=== PATIENT | male | born 1985 | race Two or more races ===

== ENCOUNTER 2021-09-29 08:43 | Emergency (ER) | payer MEDICARE, OTHER ==
[2021-09-29 08:52] VITALS: BP 129/80; PULSE 61; RESP 18; TEMP 98.1
--- NOTE | 2021-09-29 09:23 | ED ---
General Adult HPI - General Chief complaint: Skin/Abscess/Foreign Body Stated complaint: Rash on thigh Time Seen by Provider: 09/29/21 08:58 Source: patient Mode of arrival: ambulatory Limitations: no limitations - History of Present Illness Initial comments: 36-year-old male with rash that he noticed today on his inner thighs and left hand. He states he was exposed to a new carpet when she was laying on. He denies fever. Denies difficulty breathing. No vomiting. No other associated symptoms. Reaction is itchy - Related Data Previous Rx's Medication Instructions Recorded Hydrocortisone Cream 1 applic TOPICAL TID #28 gm 09/29/21 [Hydrocortisone 2.5% Cream] diphenhydrAMINE [Benadryl] 25 mg PO TID PRN #21 capsule 09/29/21 Allergies Allergy/AdvReac Type Severity Reaction Status Date / Time No Known Allergies Allergy Verified 09/29/21 08:52 Review of Systems ROS Statement: Those systems with pertinent positive or pertinent negative responses have been documented in the HPI. ROS Other: All systems not noted in ROS Statement are negative. Past Medical History Past Medical History: No Reported History History of Any Multi-Drug Resistant Organisms: None Reported Additional Past Surgical History / Comment(s): cyst on rectum, cyst to left ear Past Psychological History: Anxiety Smoking Status: Never smoker Past Alcohol Use History: None Reported Past Drug Use History: None Reported General Exam Limitations: no limitations General appearance: alert, in no apparent distress Head exam: Present: atraumatic, normocephalic Eye exam: Present: normal appearance, PERRL ENT exam: Present: normal exam Neck exam: Present: normal inspection. Absent: tenderness, meningismus Respiratory exam: Present: normal lung sounds bilaterally. Absent: respiratory distress, wheezes Cardiovascular Exam: Present: regular rate, normal rhythm GI/Abdominal exam: Present: soft. Absent: distended, tenderness Extremities exam: Present: normal capillary refill Psychiatric exam: Present: normal affect, normal mood Skin exam: Present: warm, dry, intact, erythema ( erythematous rash to bilateral inner thighs) Course Vital Signs 09/29/21 08:48 Temperature 98.1 F Pulse Rate 61 Respiratory 18 Rate Blood Pressure 129/80 O2 Sat by Pulse 100 Oximetry Medical Decision Making - Medical Decision Making 36-year-old male with rash to bilateral inner thighs, very fine erythematous rash. Likely contact dermatitis to carpet. No alarming features on history or physical exam. Started on Benadryl and topical steroid. Disposition Clinical Impression: Contact dermatitis Disposition: HOME SELF-CARE Condition: Good Instructions (If sedation given, give patient instructions): Contact Dermatitis (ED) Prescriptions: diphenhydrAMINE [Benadryl] 25 mg PO TID PRN #21 capsule PRN Reason: Rash Hydrocortisone Cream [Hydrocortisone 2.5% Cream] 1 applic TOPICAL TID #28 gm Is patient prescribed a controlled substance at d/c from ED?: No Referrals: Chaitanya Butts MD [Primary Care Provider] - 1-2 days Time of Disposition: 09:17
== END 2021-09-29 09:31 | disposition home or self-care (01) ==
LOC: EC 08:43
DX: L25.8 Unspecified contact dermatitis due to other agents (principal); F41.9 Anxiety disorder, unspecified
CPT/HCPCS: 99282

== ENCOUNTER 2022-03-25 17:25 | Emergency (ER) | payer MEDICARE, OTHER ==
--- NOTE | 2022-03-25 18:23 | ED ---
General Adult HPI - General Chief complaint: Psychiatric Symptoms Stated complaint: Weakness Time Seen by Provider: 03/25/22 17:55 Source: patient Mode of arrival: ambulatory - History of Present Illness Initial comments: Dictation was produced using [employer] dictation software. please excuse any grammatical, word or spelling errors. Chief Complaint: 37-year-old male presents emergency Department with depression and anxiety History of Present Illness: A 7-year-old male presents emergency by for depression and anxiety has past medical history of autism. States she is upset because his brother took something from him. He is not suicidal or homicidal. Has no medical complaints. No paranoia. The ROS documented in this emergency department record has been reviewed and confirmed by me. Those systems with pertinent positive or negative responses have been documented in the HPI. All other systems are other negative and/or noncontributory. PHYSICAL EXAM: General Impression: Alert and oriented x3, not in acute distress HEENT: Normocephalic atraumatic, extra-ocular movements intact, pupils equal and reactive to light bilaterally, mucous membranes moist. Cardiovascular: Heart regular rate and rhythm Chest: Able to complete full sentences, no retractions, no tachypnea Musculoskeletal: Pulses present and equal in all extremities, no peripheral edema Motor: no focal deficits noted Neurological: CN II-XII grossly intact, no focal motor or sensory deficits noted Skin: Intact with no visualized rashes Psych: Normal affect and mood ED course: 37-year-old with testicular male presents emergency department for chief complaint of depression and anxiety. Vital signs upon arrival are within acceptable limits. Cleared for EPS evaluation. Nursing notes and chart review was performed Patient was evaluated by EPS recommended discharge. - Related Data Previous Rx's Medication Instructions Recorded Hydrocortisone Cream 1 applic TOPICAL TID #28 gm 09/29/21 [Hydrocortisone 2.5% Cream] diphenhydrAMINE [Benadryl] 25 mg PO TID PRN #21 capsule 09/29/21 Allergies Allergy/AdvReac Type Severity Reaction Status Date / Time No Known Allergies Allergy Verified 03/25/22 17:43 Review of Systems ROS Statement: Those systems with pertinent positive or pertinent negative responses have been documented in the HPI. ROS Other: All systems not noted in ROS Statement are negative. Past Medical History Past Medical History: No Reported History Additional Past Medical History / Comment(s): autisim History of Any Multi-Drug Resistant Organisms: None Reported Additional Past Surgical History / Comment(s): cyst on rectum, cyst to left ear Past Psychological History: Anxiety Smoking Status: Never smoker Past Alcohol Use History: Occasional Past Drug Use History: None Reported Course Vital Signs 03/25/22 17:34 Temperature 98 F Pulse Rate 77 Respiratory 15 Rate Blood Pressure 146/85 O2 Sat by Pulse 99 Oximetry Medical Decision Making - Lab Data Lab Results 03/25/22 Range/Units 18:01 Influenza Type A (PCR) Not Detected (Not Detectd) Influenza Type B (PCR) Not Detected (Not Detectd) RSV (PCR) Not Detected (Not Detectd) SARS-CoV-2 (PCR) Not Detected (Not Detectd) Disposition Clinical Impression: Acute anxiety, Depression Disposition: HOME SELF-CARE Condition: Good Instructions (If sedation given, give patient instructions): Depression (ED) Is patient prescribed a controlled substance at d/c from ED?: No Referrals: Chaitanya Butts MD [Primary Care Provider] - 1-2 days Time of Disposition: 19:12
[2022-03-25 19:22] VITALS: BP 122/84; PULSE 76; RESP 16; TEMP 98.2
== END 2022-03-25 19:21 | disposition home or self-care (01) ==
LOC: EC 17:25
DX: F41.9 Anxiety disorder, unspecified (principal); F32.A Depression, unspecified; Z20.822 Contact with and (suspected) exposure to COVID-19
CPT/HCPCS: 82075; 87636; 99285

== ENCOUNTER 2022-06-11 10:14 | Day surgery (SDC) | payer MEDICARE, OTHER ==
[2022-06-07 16:22] VITALS: BMI 25.0
[~2022-06-11 10:14] MED LIST: LACTATED RINGERS 1,000 ML IV SCH; LIDOCAINE 1% (10MG/ML) FOR IV START INTRADERMA PRN
[2022-06-11 10:46] VITALS: RESP 16; TEMP 98.1
[2022-06-11] MEDS ORDERED: PROPOFOL 10 MG/ML 20 ML VIAL IV ONE (10:59)
--- NOTE | 2022-06-11 11:16 | P.PCN ---
Date of Procedure: 06/11/22 Procedure(s) Performed: BRIEF HISTORY: Patient is a 37-year-old pleasant -Portuguese male scheduled for an elective colonoscopy as a part of evaluation of prior history of colon polyps. PROCEDURE PERFORMED: Colonoscopy. PREOPERATIVE DIAGNOSIS: History of colon polyps. IV sedation per Anesthesia. PROCEDURE: After informed consent was obtained, the patient, was brought into the endoscopy unit. IV sedation was administered by Anesthesia under continuous monitoring. Digital rectal examination was normal. Initially the Olympus CF-160 flexible video colonoscope was then inserted in the rectum, gradually advanced into the cecum without any difficulty. Careful examination was performed as the scope was gradually being withdrawn. Ileocecal valve and the appendiceal orifice were visualized and appeared normal. Terminal ileum was intubated and 20 cm visualized and appeared normal. Prep was fair.. Mucosa of the cecum, ascending colon, transverse colon, descending colon, sigmoid colon, and rectum appeared normal. Retroflexion was performed in the rectum and no lesions were seen. The patient tolerated the procedure well. IMPRESSION: Normal-appearing colon from rectum to cecum with no evidence of colorectal neoplasia. RECOMMENDATIONS: Findings of this examination were discussed with the patient as well as his family. He was advised to have a repeat screening colonoscopy in 10 years.
[2022-06-11 11:38] VITALS: BP 107/67; PULSE 69
== END 2022-06-11 12:06 | disposition home or self-care (01) ==
LOC: ORWHC2ENDO 10:14
PROVIDERS: ATTEND Internal Medicine Gastroenterology
DX: Z12.11 Encounter for screening for malignant neoplasm of colon (principal); Z86.010 Personal history of colon polyps; F32.A Depression, unspecified; F84.0 Autistic disorder; Z79.899 Other long term (current) drug therapy
CPT/HCPCS: 86900; 86901; J2704; G0121; 45378

== ENCOUNTER 2022-08-28 18:37 | Emergency (ER) | payer MEDICARE, OTHER ==
[2022-08-28 18:47] VITALS: BP 142/83; TEMP 99.2
--- NOTE | 2022-08-28 20:54 | US ---
EXAMINATION TYPE: US extremity nonvasc mass LT DATE OF EXAM: 08/28/2022 COMPARISON: NONE CLINICAL INDICATION: Male, 37 years old with history of lump on left shoulder below AC joint; Patient states feeling a lump at anterior left shoulder after carrying groceries. Lump is soft at touch. TECHNIQUE: FINDINGS: Multiple pictures taken at patients area of concern with no prominent masses or fluid viri ection identified. Contralateral images taken. No suspicious cystic or solid areas and soft tissues. IMPRESSION: 1. No acute ultrasound abnormality patient's area of concern.
--- NOTE | 2022-08-28 21:10 | ED ---
Extremity Problem HPI - General Chief complaint: Extremity Problem,Nontraumatic Stated complaint: Lump on Lt shoulder Time Seen by Provider: 08/28/22 19:57 Source: patient Mode of arrival: ambulatory Limitations: no limitations - History of Present Illness Initial comments: Patient is a 37-year-old male presents emergency department for a lump on left shoulder. He noticed a couple weeks ago. States it is the same size, no growth. It is not painful or itchy. Denies fever, chills, nausea, vomiting. - Related Data Home Medications Medication Instructions Recorded Confirmed Emtricitabine/Tenofovir (Tdf) 1 tab PO DAILY 06/07/22 06/11/22 [Truvada 200 mg-300 mg Tablet] busPIRone HCL 10 mg PO BID PRN 06/07/22 06/11/22 risperiDONE 0.5 mg PO BID 06/07/22 06/11/22 Allergies Allergy/AdvReac Type Severity Reaction Status Date / Time No Known Allergies Allergy Verified 08/28/22 18:47 Review of Systems ROS Statement: Those systems with pertinent positive or pertinent negative responses have been documented in the HPI. ROS Other: All systems not noted in ROS Statement are negative. Past Medical History Past Medical History: No Reported History Additional Past Medical History / Comment(s): autisim History of Any Multi-Drug Resistant Organisms: None Reported Additional Past Surgical History / Comment(s): removal of cyst on rectum, cyst left ear Past Anesthesia/Blood Transfusion Reactions: No Reported Reaction Past Psychological History: Anxiety, Depression Smoking Status: Never smoker Past Alcohol Use History: Occasional Past Drug Use History: None Reported General Exam Limitations: no limitations General appearance: alert, in no apparent distress Head exam: Present: atraumatic, normocephalic, normal inspection Respiratory exam: Present: normal lung sounds bilaterally. Absent: respiratory distress, wheezes, rales, rhonchi, stridor Cardiovascular Exam: Present: regular rate, normal rhythm, normal heart sounds. Absent: systolic murmur, diastolic murmur, rubs, gallop, clicks Psychiatric exam: Present: normal affect, normal mood Skin exam: Present: warm, dry, intact, normal color, other (soft, non fluctuant 2 cm lump over anterior left shoulder beneath AC joint. Nontender. No surrounding erythema swelling or blanching). Absent: rash Course Vital Signs 08/28/22 08/28/22 18:44 21:46 Temperature 99.2 F Pulse Rate 75 71 Respiratory 20 18 Rate Blood Pressure 142/83 O2 Sat by Pulse 100 98 Oximetry Medical Decision Making - Medical Decision Making Was pt. sent in by a medical professional or institution (VIVIAN Castañeda, GLOST KILN OPERATOR, urgent care, hospital, or detention...) When possible be specific @ -No Did you speak to anyone other than the patient for history (EMS, parent, family, police, friend...)? What history was obtained from this source @ -No Did you review nursing and triage notes (agree or disagree)? Why? @ -I reviewed and agree with nursing and triage notes Were old charts reviewed (outside hosp., previous admission, EMS record, old EKG, old radiological studies, urgent care reports/EKG's, detention records)? Report findings @ -No old charts were reviewed Differential Diagnosis (chest pain, altered mental status, abdominal pain women, abdominal pain men, vaginal bleeding, weakness, fever, dyspnea, syncope, headache, dizziness, GI bleed, back pain, seizure, CVA, palpatations, mental health)? @ -lipoma, abscess, lymphadenopathy. This list is not meant to be all- inclusive EKG interpreted by me (3pts min.). @ None X-rays interpreted by me (1pt min.). @ -None done CT interpreted by me (1pt min.). @ -None done U/S interpreted by me (1pt. min.). @ -No suspicious cystic or solid areas What testing was considered but not performed or refused? (CT, X-rays, U/S, labs)? Why? @ -None What meds were considered but not given or refused? Why? @ -None Did you discuss the management of the patient with other professionals (professionals i.e. VIVIAN Castañeda, GLOST KILN OPERATOR, lab, RT, psych nurse, social services counselor, hull and deck remover, teacher, correctional program officer, content creation manager)? Give summary @ -No Was smoking cessation discussed for >3mins.? @ -No Was critical care preformed (if so, how long)? @ -No Were there social determinants of health that impacted care today? How? (Homelessness, low income, unemployed, alcoholism, drug addiction, transportation, low edu. Level, literacy, decrease access to med. care, senior care, rehab)? @ -No Was there de-escalation of care discussed even if they declined (Discuss DNR or withdrawal of care, Hospice)? DNR status @ -No What co-morbidities impacted this encounter? (DM, HTN, Smoking, COPD, CAD, Cancer, CVA, ARF, Chemo, Hep., AIDS, mental health diagnosis, sleep apnea, morbid obesity)? @ -None Was patient admitted / discharged? Hospital course, mention meds given and route, prescriptions, significant lab abnormalities, going to OR and other pertinent info. @ -Discharged. Patient soft, non fluctuant 2 cm lump over anterior left shoulder beneath AC joint. Nontender. No surrounding erythema swelling or blanching. US report shows no suspicious cystic or solid areas. Patient to follow up with primary care provider Undiagnosed new problem with uncertain prognosis? @ -No Drug Therapy requiring intensive monitoring for toxicity (Heparin, Nitro, Insulin, Cardizem)? @ -No Were any procedures done? @ -No Diagnosis/symptom? @Lump of skin Acute, or Chronic, or Acute on Chronic? @ -acute Uncomplicated (without systemic symptoms) or Complicated (systemic symptoms)? @ -uncomplicated Side effects of treatment? @ -No Exacerbation, Progression, or Severe Exacerbation? @ -No Poses a threat to life or bodily function? How? (Chest pain, [place], [place], pneumonia, PE, COPD, DKA, ARF, appy, cholecystitis, CVA, Diverticulitis, Homicidal, Suicidal, threat to staff... and all critical care pts) @ -No Dr. Reza is my attending Disposition Clinical Impression: Lump of skin Disposition: HOME SELF-CARE Condition: Good Instructions (If sedation given, give patient instructions): Lipoma (ED) Additional Instructions: Please follow-up with your primary care provider in 1-2 days. Return to the emergency department if you experience new, concerning, or worsening symptoms. Is patient prescribed a controlled substance at d/c from ED?: No Referrals: Chaitanya Butts MD [Primary Care Provider] - 1-2 days
[2022-08-28 21:47] VITALS: PULSE 71; RESP 18
== END 2022-08-28 21:47 | disposition home or self-care (01) ==
LOC: EC 18:37
DX: R22.31 Localized swelling, mass and lump, right upper limb (principal); F41.9 Anxiety disorder, unspecified; F32.A Depression, unspecified; Z79.899 Other long term (current) drug therapy
CPT/HCPCS: 99283

== ENCOUNTER 2023-02-12 20:44 | Emergency (ER) | payer MEDICARE, OTHER ==
[2023-02-12 21:17] VITALS: RESP 16; TEMP 98.4
[2023-02-12] MEDS ORDERED: DOXYCYCLINE 100 MG CAP PO STA (21:41)
[2023-02-12] MEDS ORDERED: cefTRIAXone 250 MG VIAL IM STA (21:47)
--- NOTE | 2023-02-12 21:47 | ED ---
Male Urogenital HPI - General Chief complaint: Urogenital Stated complaint: STI testing Time Seen by Provider: 02/12/23 21:00 Source: patient Mode of arrival: ambulatory Limitations: no limitations - History of Present Illness Initial comments: 38-year-old male presents emergency department requesting STI testing. States that he doesn't have any symptoms however his sexual partner did test positive for gonorrhea. He denies any penile discharge. No rash. No testicular pain. No fevers. No other alleviating, precipitating or modifying factors - Related Data Home Medications Medication Instructions Recorded Confirmed Emtricitabine/Tenofovir (Tdf) 1 tab PO DAILY 06/07/22 06/11/22 [Truvada 200 mg-300 mg Tablet] busPIRone HCL 10 mg PO BID PRN 06/07/22 06/11/22 risperiDONE 0.5 mg PO BID 06/07/22 06/11/22 Previous Rx's Medication Instructions Recorded Doxycycline [Vibramycin] 100 mg PO BID #20 capsule 11/24/22 Doxycycline Hyclate 100 mg PO BID 7 Days #14 tab 02/12/23 Allergies Allergy/AdvReac Type Severity Reaction Status Date / Time No Known Allergies Allergy Verified 02/12/23 20:57 Review of Systems ROS Statement: Those systems with pertinent positive or pertinent negative responses have been documented in the HPI. ROS Other: All systems not noted in ROS Statement are negative. Past Medical History Past Medical History: No Reported History Additional Past Medical History / Comment(s): autisim History of Any Multi-Drug Resistant Organisms: None Reported Additional Past Surgical History / Comment(s): removal of cyst on rectum, cyst left ear Past Anesthesia/Blood Transfusion Reactions: No Reported Reaction Past Psychological History: Anxiety, Depression Smoking Status: Never smoker Past Alcohol Use History: Occasional Past Drug Use History: None Reported General Exam Limitations: no limitations General appearance: alert, in no apparent distress Head exam: Present: atraumatic, normocephalic, normal inspection Eye exam: Present: normal appearance, PERRL, EOMI. Absent: scleral icterus, conjunctival injection, periorbital swelling ENT exam: Present: normal exam, mucous membranes moist Neck exam: Present: normal inspection. Absent: tenderness, meningismus, lymphadenopathy Respiratory exam: Present: normal lung sounds bilaterally. Absent: respiratory distress, wheezes, rales, rhonchi, stridor Cardiovascular Exam: Present: regular rate, normal rhythm, normal heart sounds. Absent: systolic murmur, diastolic murmur, rubs, gallop, clicks GI/Abdominal exam: Present: soft, normal bowel sounds. Absent: distended, tenderness, guarding, rebound, rigid Extremities exam: Present: normal inspection, full ROM, normal capillary refill. Absent: tenderness, pedal edema, joint swelling, calf tenderness Back exam: Present: normal inspection Neurological exam: Present: alert, oriented X3, CN II-XII intact Psychiatric exam: Present: normal affect, normal mood Skin exam: Present: warm, dry, intact, normal color. Absent: rash Course Vital Signs 02/12/23 02/12/23 20:57 22:10 Temperature 98.4 F Pulse Rate 76 77 Respiratory 16 16 Rate Blood Pressure 145/82 131/85 O2 Sat by Pulse 99 96 Oximetry Medical Decision Making - Medical Decision Making Was pt. sent in by a medical professional or institution (, PA, BOWLING TEACHER, urgent care, hospital, or care home...) When possible be specific @ -No Did you speak to anyone other than the patient for history (EMS, parent, family, police, friend...)? What history was obtained from this source @ -No Did you review nursing and triage notes (agree or disagree)? Why? @ -I reviewed and agree with nursing and triage notes Were old charts reviewed (outside hosp., previous admission, EMS record, old EKG, old radiological studies, urgent care reports/EKG's, care home records)? Report findings @ -No old charts were reviewed Differential Diagnosis (chest pain, altered mental status, abdominal pain women, abdominal pain men, vaginal bleeding, weakness, fever, dyspnea, syncope, headache, dizziness, GI bleed, back pain, seizure, CVA, palpatations, mental health, musculoskeletal)? @ -Chlamydia, gonorrhea, herpes, HIV EKG interpreted by me (3pts min.). @ -not done X-rays interpreted by me (1pt min.). @ -None done CT interpreted by me (1pt min.). @ -None done U/S interpreted by me (1pt. min.). @ -None done What testing was considered but not performed or refused? (CT, X-rays, U/S, labs)? Why? @ -None What meds were considered but not given or refused? Why? @ -None Did you discuss the management of the patient with other professionals (professionals i.e. , PA, BOWLING TEACHER, lab, RT, psych nurse, social media project manager, validation engineer, teacher, health officer, correctional case manager)? Give summary @ -No Was smoking cessation discussed for >3mins.? @ -No Was critical care preformed (if so, how long)? @ -No Were there social determinants of health that impacted care today? How? (Homelessness, low income, unemployed, alcoholism, drug addiction, transp ortation, low edu. Level, literacy, decrease access to med. care, fdc, rehab)? @ -No Was there de-escalation of care discussed even if they declined (Discuss DNR or withdrawal of care, Hospice)? DNR status @ -No What co-morbidities impacted this encounter? (DM, HTN, Smoking, COPD, CAD, Cancer, CVA, ARF, Chemo, Hep., AIDS, mental health diagnosis, sleep apnea, morbid obesity)? @ -None Was patient admitted / discharged? Hospital course, mention meds given and route, prescriptions, significant lab abnormalities, going to OR and other pertinent info. @ -Upon arrival patient seen in room 28. History and physical exam is performed. He does provide a urine sample. Patient does want to be empirically treated. He is to follow up with health department for any further STI testing. Return for any new or worsening symptoms. Patient discharged in stable condit ion Undiagnosed new problem with uncertain prognosis? @ -No Drug Therapy requiring intensive monitoring for toxicity (Heparin, Nitro, Insulin, Cardizem)? @ -No Were any procedures done? @ -No Diagnosis/symptom? @ -STD exposure Acute, or Chronic, or Acute on Chronic? @ -Acute Uncomplicated (without systemic symptoms) or Complicated (systemic symptoms)? @ -Uncomplicated Side effects of treatment? @ -No Exacerbation, Progression, or Severe Exacerbation? @ -No Poses a threat to life or bodily function? How? (Chest pain, [place], [place], pneumonia, PE, COPD, DKA, ARF, appy, cholecystitis, CVA, Diverticulitis, Homicidal, Suicidal, threat to staff... and all critical care pts) @ -No - Lab Data Lab Results 02/12/23 Range/Units 21:41 Chlamydia DNA (PCR) Negative (Negative) N.gonorrhoeae DNA Probe Negative (Negative) Disposition Clinical Impression: STD exposure Disposition: HOME SELF-CARE Condition: Stable Instructions (If sedation given, give patient instructions): Safe Sex Practices (ED) Additional Instructions: Please take the antibiotics as directed. Follow up with your primary care doctor. We will call you with positive results. Prescriptions: Doxycycline Hyclate 100 mg PO BID 7 Days #14 tab Is patient prescribed a controlled substance at d/c from ED?: No Referrals: Chaitanya Butts MD [Primary Care Provider] - 1-2 days Time of Disposition: 21:46
[2023-02-12 22:29] VITALS: BP 131/85; PULSE 77
[2023-02-16 13:51] LABS: N. gonorrhoeae,PCR Negative (Negative)
[2023-02-16 14:16] LABS: C. trachomatis,PCR Negative (Negative)
== END 2023-02-12 22:11 | disposition home or self-care (01) ==
LOC: EC 20:44
DX: Z20.2 Contact with and (suspected) exposure to infections with a predominantly sexual mode of transmission (principal); F41.9 Anxiety disorder, unspecified; F32.A Depression, unspecified; Z79.899 Other long term (current) drug therapy
CPT/HCPCS: 87491; 87591; 99283; 96372; J0696

== ENCOUNTER → 2023-02-15 | Outpatient (CLI) | payer MEDICARE, OTHER ==
--- NOTE | 2023-02-18 13:30 | MR ---
EXAMINATION TYPE: MR knee LT wo con DATE OF EXAM: 02/15/2023 COMPARISON: HISTORY: Lt knee pain, over extended x 5 years ago TECHNIQUE: Multiplanar, multisequence imaging of the knee is performed without IV contrast. FINDINGS: The osseous structures are intact there is no bone contusion or fracture. There is mild abnormal signal intensity in the anterior cruciate ligament but intact fibers are clear ly identified. The findings are consistent with a mild strain. The medial and lateral collateral liga ments and posterior cruciate ligament are intact. There is no joint effusion. There is no degenerative change of patellofemoral compartment or medial or lateral compartment. On the coronal images there is abnormal signal in the body of the medial meniscus which is extends ob liquely to the inferior surface. It is not appreciated on the sagittal images but is suspicious for a medial meniscal tear. The lateral meniscus is intact. The quadriceps and patellar tendons are normal. There is no joint effusion. IMPRESSION: 1. Mild strain of the anterior cruciate ligament. 2. probable oblique tear of the body of the medial meniscus as described above.
== END | disposition home or self-care (01) ==
LOC: RADMRIMAIN 13:06
PROVIDERS: ATTEND Orthopaedic Surgery
DX: S83.512A Sprain of anterior cruciate ligament of left knee, initial encounter (principal)

== ENCOUNTER 2023-04-08 07:10 | Day surgery (SDC) | payer MEDICARE, OTHER ==
--- NOTE | 2023-04-07 08:57 | P.HPOR ---
History of Present Illness H&P Date: 04/07/23 Chief Complaint: Left knee pain Patient is a 8-year-old male who presents with progressive left knee pain for the past 6 years worsening over the past year. He notes it initially started after he hyperextended his knee working out. He has medial pain that increased with prolonged walking. He has intermittent buckling symptoms and night pain. He tried previous medications, injections, and therapy without much relief. He notes daily pain that limits him. 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 History of Any Multi-Drug Resistant Organisms: None Reported Additional Past Surgical History / Comment(s): removal of cyst on rectum, cyst left ear Past Anesthesia/Blood Transfusion Reactions: No Reported Reaction Past Psychological History: Anxiety, Depression Smoking Status: Never smoker Past Alcohol Use History: Occasional Past Drug Use History: None Reported Medications and Allergies Home Medications Medication Instructions Recorded Confirmed Type Emtricitabine/Tenofovir (Tdf) 1 tab PO QAM 06/07/22 04/07/23 History [Truvada 200 mg-300 mg Tablet] busPIRone HCL 10 mg PO BID PRN 06/07/22 04/07/23 History risperiDONE 0.5 mg PO BID 06/07/22 04/07/23 History traMADol HCL 50 mg PO BID PRN 04/07/23 04/07/23 History Allergies Allergy/AdvReac Type Severity Reaction Status Date / Time No Known Allergies Allergy Verified 04/07/23 08:40 Physical Examination - Knee left Appearance: effusion Effusion grade: trace Tenderness with palpation: medial Pain: throughout ROM ROM: extension: -5 degrees ROM: flexion: 140 degrees Crepitus with motion: Yes Strength: extension: 5/5 Strength: flexion: 5/5 Meniscal tests: medial meniscal tests: positive, medial joint line pain: posi tive Results He is a well-developed well-nourished male approximately 5 foot 6, 174 pounds of mesomorphic habitus. HEENT exam is nonfocal, neck is supple. He has painless passive motion of the left hip. Straight leg raise is negative. He is tender about the medial joint line of the left knee. Collaterals are stable, Claus was negative, Skyler's elicits medial pain. His distal neurovascular appears intact in the left lower extremity. - Diagnostic results Knee MRI: image reviewed (MRI of the left knee shows evidence of a posterior medial meniscal tear.) Assessment and Plan Assessment: Left knee internal derangement/symptomatic medial meniscal tear Plan: I talked to the patient length regarding his condition along with treatment options. This point is quite symptomatic having pain and mechanical symptoms despite previous conservative measures. After a thorough discussion he has to proceed with surgery. We'll plan proceed with left knee arthroscopy with probable partial medial meniscectomy. Risks and benefits were discussed at length in layman's terms. We will likely perform that as an outpatient procedure.
[2023-04-07 09:27] VITALS: BMI 26.9
[~2023-04-08 07:10] MED LIST changes: -LACTATED RINGERS 1,000 ML IV SCH; -LIDOCAINE 1% (10MG/ML) FOR IV START INTRADERMA PRN; +MIDAZOLAM 2 MG/2 ML VIAL IV PRN
[2023-04-08] MEDS: LACTATED RINGERS 1,000 ML IV SCH (07:50)
[2023-04-08] MEDS: DEXAMETHASONE SOD PHOSPHATE 4 MG/ML 1 ML VIAL IV ONE (07:58)
[2023-04-08] MEDS: ONDANSETRON 4 MG/2 ML VIAL IVP ONE (07:58)
[2023-04-08 08:29] VITALS: TEMP 97.5
[2023-04-08] MEDS ORDERED: fentaNYL (PF) 50 MCG/ML 2 ML AMP ONE (09:01)
[2023-04-08] MEDS ORDERED: PROPOFOL 10 MG/ML 20 ML VIAL IV ONE (09:01)
[2023-04-08] MEDS ORDERED: LIDOCAINE 1% INJ 10MG/ML (20 ML MDV) ONE (09:01)
[2023-04-08] MEDS ORDERED: PHENYLEPHRINE 10 MG/ML VIAL ONE (09:01)
[2023-04-08] MEDS ORDERED: MIDAZOLAM 2 MG/2 ML VIAL ONE (09:01)
[2023-04-08] MEDS ORDERED: KETOROLAC 15 MG/ML 1 ML VIAL ONE (09:01)
[2023-04-08] MEDS: EPINEPHrine (PF) 1 ML in SODIUM CHLORIDE 0.9% IRRIGATIO 3,000 ML IRRIGATION ONE (09:30)
--- NOTE | 2023-04-08 09:48 | P.OP ---
Date of Procedure: 04/08/23 Preoperative Diagnosis: Left knee internal derangement Postoperative Diagnosis: Left knee posterior medial meniscal tear/fat pad impingement Procedure(s) Performed: Left knee arthroscopic partial medial meniscectomy/fat pad resection Anesthesia: BRIDGETA Surgeon: Andrzej Paris Estimated Blood Loss (ml): 10 Pathology: none sent Condition: stable Disposition: PACU Indications for Procedure: The patient is a 38-year-old male who presents with persistent left knee pain and mechanical symptoms despite conservative measures. A discussion of the risks and benefits of operative intervention versus continued conservative measures was made with the patient. He opted to proceed with surgery. Operative risks to include infection, neurovascular injury, development of blood clots, possible incomplete resolution of symptoms, possible worsening symptoms and need for subsequent procedures was discussed. Informed consent was obtained. Operative Findings: As below Description of Procedure: The patient was brought to the operating room, and after induction of general anesthesia examined the left knee. Collaterals were stable, Claus was negative, and posterior drawer was negative. The left lower extremity was prepped and draped in a normal fashion. A superior lateral portal was made through a 3 mm skin incision superior and lateral to the patella. This was used for outflow. A lateral portal was made through a 5 mm vertical skin incision lateral to the patella tendon above the joint line. Diagnostic arthroscopy was performed. On inspection of the medial compartment, there was a longitudinal tear involving the posterior most aspect of the medial meniscus in the white- white junction. This was debrided back to stable base with straight baskets and a motorized shaver. Minimal chondromalacia was noted on the posterior lateral portion of the medial femoral condyle. On inspection of the notch, there appeared to be fat pad impingement. This was debrided with motorized shaver. The anterior cruciate ligament appeared to be intact. On inspection of the lateral compartment, no significant meniscal or cartilage pathology was noted. On inspection of the patellofemoral articulation , no significant cartilage pathology was noted. The gutters were clear debris. The knee was then thoroughly irrigated. The portals were closed with Steri-Strips. A sterile dressing was applied in addition to a compression stocking. The patient was awoken from general anesthesia and transferred to recovery room in good condition. Blood loss was estimated at 10 mL. No complications were incurred.
[2023-04-08] MEDS: HYDROmorphone 0.5 MG/0.5 ML SYRINGE IVP PRN (10:18)
[2023-04-08 10:33] VITALS: RESP 16
[2023-04-08] MEDS ORDERED: HYDROcodone/APAP 5-325MG 1 EACH TAB ONE (11:11)
[2023-04-08] MEDS: HYDROcodone/APAP 5-325MG 1 EACH TAB PO ONE (11:12)
[2023-04-08 11:36] VITALS: BP 107/68; PULSE 75
== END 2023-04-08 11:42 | disposition home or self-care (01) ==
LOC: OR 07:10
PROVIDERS: ATTEND Orthopaedic Surgery
DX: M23.304 Other meniscus derangements, unspecified medial meniscus, left knee (principal); F41.9 Anxiety disorder, unspecified; F32.A Depression, unspecified; F10.90 Alcohol use, unspecified, uncomplicated; Z79.624 Long term (current) use of inhibitors of nucleotide synthesis; Z98.890 Other specified postprocedural states; Z79.899 Other long term (current) drug therapy

== ENCOUNTER 2023-06-26 16:44 | Emergency (ER) | payer MEDICARE, OTHER ==
[2023-06-26 17:20] VITALS: RESP 18
--- NOTE | 2023-06-26 17:39 | ED ---
Male Urogenital HPI - General Chief complaint: Skin/Abscess/Foreign Body Stated complaint: wound in groin area Time Seen by Provider: 06/26/23 17:10 Source: patient, RN notes reviewed, old records reviewed Mode of arrival: ambulatory Limitations: no limitations - History of Present Illness Initial comments: There is a 38-year-old male to ER for evaluation. Patient coming in from groin lesion. Patient has right-sided thigh groin lesion that is causing him significant pain very malodorous with significant discharge. Patient has no similar symptoms no medical history no diabetes no current sexual activity MD Complaint: other (Groin discharge no penile discharge) -: days(s) Location: right inguinal region Radiation: none Severity: moderate Severity scale (1-10): 7 Quality: stabbing Consistency: constant Improves with: none Worsens with: none new medication Reports: rash - Related Data Home Medications Medication Instructions Recorded Confirmed Emtricitabine/Tenofovir (Tdf) 1 tab PO QAM 06/07/22 04/08/23 [Truvada 200 mg-300 mg Tablet] busPIRone HCL 10 mg PO BID PRN 06/07/22 04/08/23 risperiDONE 0.5 mg PO BID 06/07/22 04/08/23 traMADol HCL 50 mg PO BID PRN 04/07/23 04/08/23 Previous Rx's Medication Instructions Recorded HYDROcodone/APAP 5-325MG [[place] 1 tab PO Q6HR PRN #21 tab 04/08/23 5-325] Allergies Allergy/AdvReac Type Severity Reaction Status Date / Time No Known Allergies Allergy Verified 06/26/23 17:06 Review of Systems ROS Statement: Those systems with pertinent positive or pertinent negative responses have been documented in the HPI. ROS Other: All systems not noted in ROS Statement are negative. 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 no hx blood transfusion Past Psychological History: Anxiety, Depression Smoking Status: Never smoker Past Alcohol Use History: Occasional Past Drug Use History: None Reported - Past Family History Father History Unknown: Yes General Exam Limitations: no limitations General appearance: alert, in no apparent distress Head exam: Present: atraumatic, normocephalic, normal inspection Eye exam: Present: normal appearance, PERRL, EOMI. Absent: scleral icterus, conjunctival injection, periorbital swelling ENT exam: Present: normal exam, mucous membranes moist Neck exam: Present: normal inspection. Absent: tenderness, meningismus, lymphadenopathy Respiratory exam: Present: normal lung sounds bilaterally. Absent: respiratory distress, wheezes, rales, rhonchi, stridor Cardiovascular Exam: Present: regular rate, normal rhythm, normal heart sounds. Absent: systolic murmur, diastolic murmur, rubs, gallop, clicks GI/Abdominal exam: Present: soft, normal bowel sounds. Absent: distended, tenderness, guarding, rebound, rigid Extremities exam: Present: normal inspection, full ROM, normal capillary refill. Absent: tenderness, pedal edema, joint swelling, calf tenderness Back exam: Present: normal inspection Neurological exam: Present: alert, oriented X3, CN II-XII intact Psychiatric exam: Present: normal affect, normal mood Skin exam: Present: warm, dry, intact, normal color. Absent: rash Course Vital Signs 06/26/23 06/26/23 17:02 18:21 Temperature 98.6 F 97.9 F Pulse Rate 78 71 Respiratory 18 18 Rate Blood Pressure 140/82 127/69 O2 Sat by Pulse 98 99 Oximetry - Reevaluation(s) Reevaluation #1: 06/26/23 17:38 Medical records reviewed Reevaluation #2: 06/26/23 17:38 Patient symptoms unchanged Reevaluation #3: 06/26/23 17:38 Patient informed of results and questions answered Reevaluation #4: Was pt. sent in by a medical professional or institution (, PA, SURGICAL INSTRUMENT TECHNICIAN, urgent care, hospital, or shelter...) When possible be specific @ -no Did you speak to anyone other than the patient for history (EMS, parent, family, police, friend...)? What history was obtained from this source @ -no Did you review nursing and triage notes (agree or disagree)? Why? @ -agree Are old charts reviewed (outside hosp., previous admission, EMS record, old EKG, old radiological studies, urgent care reports/EKG's, shelter records)? Report findings @ -yes Differential Diagnosis (chest pain, altered mental status, abdominal pain women, abdominal pain men, vaginal bleeding, weakness, fever, dyspnea, syncope, headache, dizziness, GI bleed, back pain, seizure, CVA, palpatations, mental health, musculoskeletal)? @ -prior EKG interpreted by me (3pts min.). @ -no X-rays interpreted by me (1pt min.). @ -no CT interpreted by me (1pt min.). @ -no U/S interpreted by me (1pt. min.). @ -no What testing was considered but not performed or refused? (CT, X-rays, U/S, labs)? Why? @ -none What meds were considered but not given or refused? Why? @ -none Did you discuss the management of the patient with other professionals (professionals i.e. , PA, SURGICAL INSTRUMENT TECHNICIAN, lab, RT, psych nurse, child protective services social worker, loss prevention lead, teacher, retail loss prevention officer, catalytic case operator)? Give summary @ -no Was smoking cessation discussed for >3mins.? @ -no Was critical care preformed (if so, how long)? @ -no Were there social determinants of health that impacted care today? How? (Homelessness, low income, unemployed, alcoholism, drug addiction, transportation, low edu. Level, literacy, decrease access to med. care, alf, rehab)? @ -none Was there de-escalation of care discussed even if they declined (Discuss DNR or withdrawal of care, Hospice)? DNR status @ -no What co-morbidities impacted this encounter? (DM, HTN, Smoking, COPD, CAD, Cancer, CVA, ARF, Chemo, Hep., AIDS, mental health diagnosis, sleep apnea, morbid obesity)? @ -none Was patient admitted / discharged? Hospital course, mention meds given and route, prescriptions, significant lab abnormalities, going to OR and other pertinent info. @ - 38 male to ER with significant groin rash. Open lesion, ulcer currently open draining, patient placed on antibiotics and can be discharged home Discharged Undiagnosed new problem with uncertain prognosis? @ -no Drug Therapy requiring intensive monitoring for toxicity (Heparin, Nitro, Insulin, Cardizem)? @ -no Were any procedures done? @ -no Diagnosis/symptom? @ -Open also draining Acute, or Chronic, or Acute on Chronic? @ -Acute Uncomplicated (without systemic symptoms) or Complicated (systemic symptoms)? @ -Complicated Side effects of treatment? @ -no Exacerbation, Progression, or Severe Exacerbation? @ -exacerbation Poses a threat to life or bodily function? How? (Chest pain, [place], [place], pneumonia, PE, COPD, DKA, ARF, appy, cholecystitis, CVA, Diverticulitis, Homicidal, Suicidal, threat to staff... and all critical care pts) @ -no Medical Decision Making - Medical Decision Making 38 male to ER with significant groin rash. Open lesion, ulcer currently open draining, patient placed on antibiotics and can be discharged home - Lab Data Lab Results 06/26/23 06/26/23 Range/Units 18:29 18:29 Urine Color Colorless Urine Appearance Clear (Clear) Urine pH 6.5 (5.0-8.0) Ur Specific [place] 1.017 (1.001-1.035) Urine Protein Negative (Negative) Urine Glucose (UA) Negative (Negative) Urine Ketones Negative (Negative) Urine Blood Trace H (Negative) Urine Nitrite Negative (Negative) Urine Bilirubin Negative (Negative) Urine Urobilinogen <2.0 (<2.0) mg/dL Ur Leukocyte Esterase Negative (Negative) Urine RBC 2 (0-5) /hpf Urine WBC <1 (0-5) /hpf Chlamydia DNA (PCR) Negative (Negative) N.gonorrhoeae DNA Probe Negative (Negative) Disposition Clinical Impression: Right groin ulcer Disposition: HOME SELF-CARE Condition: Good Instructions (If sedation given, give patient instructions): Groin Pain (ED), Cyst (ED) Is patient prescribed a controlled substance at d/c from ED?: No Referrals: Chaitanya Butts MD [Primary Care Provider] - 1-2 days Time of Disposition: 17:30
[2023-06-26] MEDS: SULFAMETH-TMP DS STARTER PACK 2 TAB BTL PO STA (18:17)
[2023-06-26] MEDS: AMOXIC-POT CLAV 875MG STARTER PACK 2 TAB BTL PO STA (18:17)
[2023-06-26] MEDS: AMOXIC-POT CLAV 875-125MG 1 EACH TAB PO STA (18:18)
[2023-06-26] MEDS: SULFAMETHOX-TMP 800-160MG 1 EACH TAB PO STA (18:18)
[2023-06-26] MEDS: MUPIROCIN 2% OINT 22 GM TUBE TOPICAL SCH (18:19)
[2023-06-26 18:41] VITALS: BP 127/69; PULSE 71; TEMP 97.9
[2023-06-26 18:50] LABS: Appearance,Urine Clear (Clear); Bilirubin,Urine Negative (Negative); Blood,Urine Trace (Negative); Color,Urine Colorless; Glucose,Urine (UA) Negative (Negative); Ketones,Urine Negative (Negative); Leukocyte Esterase,Urine Negative (Negative); Nitrite,Urine Negative (Negative); PH, Urine 6.5 (5.0-8.0); Protein,Urine Negative (Negative); RBC,Urine 2 /hpf (0-5); Specific Gravity,Urine 1.017 (1.001-1.035); Urobilinogen,Urine <2.0 mg/dL (<2.0); WBC,Urine <1 /hpf (0-5)
[2023-06-28 15:15] LABS: N. gonorrhoeae,PCR Negative (Negative)
[2023-06-28 15:17] LABS: C. trachomatis,PCR Negative (Negative)
== END 2023-06-26 18:29 | disposition home or self-care (01) ==
LOC: EC 16:44
DX: L02.214 Cutaneous abscess of groin (principal)
CPT/HCPCS: 81001; 87491; 87591; 99284

== ENCOUNTER 2023-08-28 18:20 | Emergency (ER) | payer MEDICARE, OTHER ==
--- NOTE | 2023-08-28 18:49 | ED ---
General Adult HPI - General Chief complaint: Skin/Abscess/Foreign Body Stated complaint: rash Time Seen by Provider: 08/28/23 18:27 Source: patient Mode of arrival: ambulatory Limitations: no limitations - History of Present Illness Initial comments: 38-year-old male presenting with chief complaint of "I want to make sure I do not have a parasite". A recent sexual partner of his was diagnosed with pinworms and he wanted to make sure that he did not also have them. He states that he has a slight rash on his arms. States that it is difficult to see but he feels a bit itchy. He denies any rectal itching. No nausea, vomiting, diarrhea. He is also requesting STI testing. No dysuria, penile discharge, redness, swelling, testicular pain. Patient is on Truvada. - Related Data Home Medications Medication Instructions Recorded Confirmed Emtricitabine/Tenofovir (Tdf) 1 tab PO QAM 06/07/22 04/08/23 [Truvada 200 mg-300 mg Tablet] busPIRone HCL 10 mg PO BID PRN 06/07/22 04/08/23 risperiDONE 0.5 mg PO BID 06/07/22 04/08/23 traMADol HCL 50 mg PO BID PRN 04/07/23 04/08/23 Previous Rx's Medication Instructions Recorded HYDROcodone/APAP 5-325MG [[place] 1 tab PO Q6HR PRN #21 tab 04/08/23 5-325] Mebendazole [Emverm chew] 100 mg PO ONCE #2 tab 08/28/23 Allergies Allergy/AdvReac Type Severity Reaction Status Date / Time No Known Allergies Allergy Verified 08/28/23 18:25 Review of Systems ROS Statement: Those systems with pertinent positive or pertinent negative responses have been documented in the HPI. ROS Other: All systems not noted in ROS Statement are negative. 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 no hx blood transfusion Past Psychological History: Anxiety, Depression Smoking Status: Never smoker Past Alcohol Use History: Occasional Past Drug Use History: None Reported - Past Family History Father History Unknown: Yes General Exam Limitations: no limitations General appearance: alert, in no apparent distress Head exam: Present: atraumatic, normocephalic Eye exam: Present: normal appearance, EOMI Neck exam: Present: normal inspection. Absent: meningismus Respiratory exam: Absent: respiratory distress Cardiovascular Exam: Present: regular rate Rectal exam: Present: deferred Neurological exam: Present: alert, oriented X3 Psychiatric exam: Present: normal affect, normal mood Skin exam: Present: warm, dry, normal color. Absent: rash Course Vital Signs 08/28/23 08/28/23 18:22 19:02 Temperature 98.4 F 98.1 F Pulse Rate 76 77 Respiratory 17 18 Rate Blood Pressure 129/70 115/77 O2 Sat by Pulse 99 99 Oximetry Medical Decision Making - Medical Decision Making 38-year-old male presenting for parasite testing. Recent sexual partner of his informed him that he has pinworms. Patient has no rectal itching or other GI symptoms. He is having some itching to his arms but I see no rash on exam. No signs of distress. He is also requesting STD testing. He will be sent mebendazole for pinworm exposure. STI testing is sent out, patient will be contacted with results. Discharged home. Follow-up with PCP. Report back to ER with any new or worsening symptoms. Discussed return parameters and answered all questions. Patient conveyed verbal understanding and agreed to the plan. I discussed this case in detail with my attending Dr. Wasserman Was pt. sent in by a medical professional or institution (, PA, OXYGEN SYSTEM TESTER, urgent care, hospital, or shelter...) When possible be specific @ -No Did you speak to anyone other than the patient for history (EMS, parent, family, police, friend...)? What history was obtained from this source @ -No Did you review nursing and triage notes (agree or disagree)? Why? @ -I reviewed and agree with nursing and triage notes Were old charts reviewed (outside hosp., previous admission, EMS record, old EKG, old radiological studies, urgent care reports/EKG's, shelter records)? Report findings @ -No old charts were reviewed Differential Diagnosis (chest pain, altered mental status, abdominal pain women, abdominal pain men, vaginal bleeding, weakness, fever, dyspnea, syncope, headache, dizziness, GI bleed, back pain, seizure, CVA, palpatations, mental health, musculoskeletal)? @ -Not applicable EKG interpreted by me (3pts min.). @ -As above X-rays interpreted by me (1pt min.). @ -None done CT interpreted by me (1pt min.). @ -None done U/S interpreted by me (1pt. min.). @ -None done What testing was considered but not performed or refused? (CT, X-rays, U/S, labs)? Why? @ -None What meds were considered but not given or refused? Why? @ -None Did you discuss the management of the patient with other professionals (professionals i.e. DrJael, PA, OXYGEN SYSTEM TESTER, lab, RT, psych nurse, child welfare social worker, wig stylist, teacher, assurance officer, case briefer)? Give summary @ -No Was smoking cessation discussed for >3mins.? @ -No Was critical care preformed (if so, how long)? @ -No Were there social determinants of health that impacted care today? How? (Homelessness, low income, unemployed, alcoholism, drug addiction, transportation, low edu. Level, literacy, decrease access to med. care, [facility], rehab)? @ -No Was there de-escalation of care discussed even if they declined (Discuss DNR or withdrawal of care, Hospice)? DNR status @ -No What co-morbidities impacted this encounter? (DM, HTN, Smoking, COPD, CAD, Cancer, CVA, ARF, Chemo, Hep., AIDS, mental health diagnosis, sleep apnea, morbid obesity)? @ -None Was patient admitted / discharged? Hospital course, mention meds given and route, prescriptions, significant lab abnormalities, going to OR and other pertinent info. @ -Discharge, see above for details Undiagnosed new problem with uncertain prognosis? @ -No Drug Therapy requiring intensive monitoring for toxicity (Heparin, Nitro, Insulin, Cardizem)? @ -No Were any procedures done? @ -No Diagnosis/symptom? @ -Encounter for STI screening, recent pinworm exposure Acute, or Chronic, or Acute on Chronic? @ -Acute Uncomplicated (without systemic symptoms) or Complicated (systemic symptoms)? @ -Uncomplicated Side effects of treatment? @ -No Exacerbation, Progression, or Severe Exacerbation? @ -No Poses a threat to life or bodily function? How? (Chest pain, [place], [place], pneumonia, PE, COPD, DKA, ARF, appy, cholecystitis, CVA, Diverticulitis, Homicidal, Suicidal, threat to staff... and all critical care pts) @ -No - Lab Data Lab Results 08/28/23 Range/Units 18:39 Urine Color Light Yellow Urine Appearance Clear (Clear) Urine pH 6.5 (5.0-8.0) Ur Specific [employer] 1.030 (1.001-1.035) Urine Protein Negative (Negative) Urine Glucose (UA) Negative (Negative) Urine Ketones Negative (Negative) Urine Blood Small H (Negative) Urine Nitrite Negative (Negative) Urine Bilirubin Negative (Negative) Urine Urobilinogen <2.0 (<2.0) mg/dL Ur Leukocyte Esterase Negative (Negative) Urine RBC 6 H (0-5) /hpf Urine Mucus Rare H (None) /hpf Disposition Clinical Impression: Screening examination for STI Narrative: Exposure to pinworms Disposition: HOME SELF-CARE Condition: Good Instructions (If sedation given, give patient instructions): Pinworm Infection (ED), Male Condom Use (ED), Safe Sex Practices (ED) Additional Instructions: Follow-up with PCP. Report back to ER with any new or worsening symptoms. Prescriptions: Mebendazole [Emverm chew] 100 mg PO ONCE #2 tab Is patient prescribed a controlled substance at d/c from ED?: No Referrals: Chaitanya Butts MD [Primary Care Provider] - 1-2 days Time of Disposition: 18:49
[2023-08-28 19:03] VITALS: BP 115/77; PULSE 77; RESP 18; TEMP 98.1
[2023-08-28 19:06] LABS: Appearance,Urine Clear (Clear); Bilirubin,Urine Negative (Negative); Blood,Urine Small (Negative); Color,Urine Light Yellow; Glucose,Urine (UA) Negative (Negative); Ketones,Urine Negative (Negative); Leukocyte Esterase,Urine Negative (Negative); Mucus,Urine Rare /hpf; Nitrite,Urine Negative (Negative); PH, Urine 6.5 (5.0-8.0); Protein,Urine Negative (Negative); RBC,Urine 6 /hpf (0-5); Urobilinogen,Urine <2.0 mg/dL (<2.0)
[2023-08-29 13:24] LABS: C. trachomatis,PCR Negative (Negative)
[2023-08-29 13:36] LABS: HIV 2 AB Non-Reactive (Non-Reactive); HIV AB P24 Non-Reactive (Non-Reactive); HIV P24 AG Non-Reactive (Non-Reactive)
[2023-08-29 13:37] LABS: N. gonorrhoeae,PCR Negative (Negative)
== END 2023-08-28 19:03 | disposition home or self-care (01) ==
LOC: EC 18:20
DX: Z11.3 Encounter for screening for infections with a predominantly sexual mode of transmission (principal)
CPT/HCPCS: 36415; 81001; 86592; 86780; 87390; 87491; 87591; 99283

== ENCOUNTER 2023-08-30 08:40 | Emergency (ER) | payer MEDICARE, OTHER ==
[2023-08-30 08:46] VITALS: RESP 18
--- NOTE | 2023-08-30 09:09 | ED ---
General Adult HPI - General Chief complaint: Recheck/Abnormal Lab/Rx Stated complaint: abn labs Time Seen by Provider: 08/30/23 08:40 Source: patient, RN notes reviewed, old records reviewed Mode of arrival: ambulatory Limitations: no limitations - History of Present Illness Initial comments: Patient is a 38-year-old male who presents emergency department for antibiotic. Patient recently tested positive for syphilis at our hospital. This was on August 28, 2023. Patient was contacted to receive antibiotics. Patient has no other significant past medical history. Does seem that the patient was seen for a groin lesion here back in May. Possible this was primary syphilis finding at that time. Was not tested then. I did discuss this with the patient. Currently has no symptoms. He presents for the antibiotic and discharge. States he does have a good PCP for follow-up, Dr. Butts. - Related Data Home Medications Medication Instructions Recorded Confirmed Emtricitabine/Tenofovir (Tdf) 1 tab PO QAM 06/07/22 04/08/23 [Truvada 200 mg-300 mg Tablet] busPIRone HCL 10 mg PO BID PRN 06/07/22 04/08/23 risperiDONE 0.5 mg PO BID 06/07/22 04/08/23 traMADol HCL 50 mg PO BID PRN 04/07/23 04/08/23 Previous Rx's Medication Instructions Recorded HYDROcodone/APAP 5-325MG [[place] 1 tab PO Q6HR PRN #21 tab 04/08/23 5-325] Mebendazole [Emverm chew] 100 mg PO ONCE #2 tab 08/28/23 Allergies Allergy/AdvReac Type Severity Reaction Status Date / Time No Known Allergies Allergy Verified 08/30/23 08:46 Review of Systems ROS Statement: Those systems with pertinent positive or pertinent negative responses have been documented in the HPI. Review of Systems: CONST: Denies fever EYES: Denies blurry vision ENT: Denies nasal congestion C/V: Denies Chest pain RESP: Denies shortness of breath GI: Denies abdominal pain : Denies dysuria SKIN: Denies rash. MSK: Denies joint pain. NEURO: Denies headache ROS Other: All systems not noted in ROS Statement are negative. 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 no hx blood transfusion Past Psychological History: Anxiety, Depression Smoking Status: Never smoker Past Alcohol Use History: Occasional Past Drug Use History: None Reported - Past Family History Father History Unknown: Yes General Exam - General Exam Comments Initial Comments: General: Appears in no acute distress. HEAD: Normal with no signs of head trauma. EYES: EOMI. ENT: Hearing grossly intact. RESPIRATORY: No respiratory distress. C/V: Regular rate and rhythm. ABD: Abdomen is nondistended. EXT: No obvious deformity. SKIN: No rashes or lesions observed on exposed skin. NEURO: Alert and oriented. Limitations: no limitations Course Vital Signs 08/30/23 08/30/23 08:44 09:29 Temperature 97.1 F L 97.9 F Pulse Rate 68 67 Respiratory 18 18 Rate Blood Pressure 113/71 115/84 O2 Sat by Pulse 99 99 Oximetry Medical Decision Making - Medical Decision Making Was pt. sent in by a medical professional or institution (VIVIAN Castañeda, PACKAGE D[employer] STAND LOADER, urgent care, hospital, or long term...) When possible be specific @ -Sent in by our ER after testing positive for syphilis for IM injection of antibiotic. Did you speak to anyone other than the patient for history (EMS, parent, family, police, friend...)? What history was obtained from this source @ -No Did you review nursing and triage notes (agree or disagree)? Why? @ -I reviewed and agree with nursing and triage notes Were old charts reviewed (outside hosp., previous admission, EMS record, old EKG, old radiological studies, urgent care reports/EKG's, long term records)? Report findings @ -Old charts reviewed from last month as well as from May. Patient had a lesion in his groin in May. A few days ago tested positive for syphilis. Differential Diagnosis (chest pain, altered mental status, abdominal pain women, abdominal pain men, vaginal bleeding, weakness, fever, dyspnea, syncope, headache, dizziness, GI bleed, back pain, seizure, CVA, palpatations, mental health, musculoskeletal)? @ -Syphilis, STD, this list is not all inclusive. EKG interpreted by me (3pts min.). @ -None done X-rays interpreted by me (1pt min.). @ -None done CT interpreted by me (1pt min.). @ -None done U/S interpreted by me (1pt. min.). @ -None done What testing was considered but not performed or refused? (CT, X-rays, U/S, labs)? Why? @ -None What meds were considered but not given or refused? Why? @ -None Did you discuss the management of the patient with other professionals (professionals i.e. , PA, PACKAGE D[employer] STAND LOADER, lab, RT, psych nurse, social media analyst, experimental technician, teacher, real estate officer, trimming caser)? Give summary @ -No Was smoking cessation discussed for >3mins.? @ -No Was critical care preformed (if so, how long)? @ -No Were there social determinants of health that impacted care today? How? (Homelessness, low income, unemployed, alcoholism, drug addiction, transportation, low edu. Level, literacy, decrease access to med. care, custodial, rehab)? @ -No Was there de-escalation of care discussed even if they declined (Discuss DNR or withdrawal of care, Hospice)? DNR status @ -No What co-morbidities impacted this encounter? (DM, HTN, Smoking, COPD, CAD, Cancer, CVA, ARF, Chemo, Hep., AIDS, mental health diagnosis, sleep apnea, morbid obesity)? @ -None Was patient admitted / discharged? Hospital course, mention meds given and route, prescriptions, significant lab abnormalities, going to OR and other pertinent info. @ -I discussed with the patient the results of his positive syphilis test. He expresses understanding. Recommended IM injection of penicillin be which she was in agreement with. I also recommended he follow-up closely with his PCP or the health department regarding his positive syphilis diagnosis for further monitoring and evaluation. He was also in agreement this plan. He has no other active symptoms at this time. No other complaints. Would like to go home after the injection. This is reasonable. He is not immunocompromise. Vital signs within acceptable limits. Patient be discharged home at this time. I instructed the patient to follow up with their PCP in the next 1-3 days. I provided contact information for follow up with health department. I explained that the patient should return to the emergency department if they experience any worsening symptoms. Strict return precautions were discussed with the patient. The patient expressed understanding of these instructions. I answered all questions that the patient had. The patient was discharged home in fair condition with their prescriptions and follow up information. Undiagnosed new problem with uncertain prognosis? @ -No Drug Therapy requiring intensive monitoring for toxicity (Heparin, Nitro, Insulin, Cardizem)? @ -No Were any procedures done? @ -No Diagnosis/symptom? @ -Syphilis, suspect primary stage Acute, or Chronic, or Acute on Chronic? @ -Acute Uncomplicated (without systemic symptoms) or Complicated (systemic symptoms)? @ -Uncomplicated Side effects of treatment? @ -No Exacerbation, Progression, or Severe Exacerbation? @ -No Poses a threat to life or bodily function? How? (Chest pain, [place], [place], pneumonia, PE, COPD, DKA, ARF, appy, cholecystitis, CVA, Diverticulitis, Homicidal, Suicidal, threat to staff... and all critical care pts) @ -Possibly in the future but not at this time. Disposition Clinical Impression: Syphilis Disposition: HOME SELF-CARE Condition: Good Instructions (If sedation given, give patient instructions): Syphilis (ED) Additional Instructions: You tested positive for syphilis. Likely early phase. You need very close follow up with your PCP Dr. Butts. You can also elect to follow up with the health department. Return if any concerning symptoms. Is patient prescribed a controlled substance at d/c from ED?: No Referrals: Chaitanya Butts MD [Primary Care Provider] - 1-2 days Health Department,[facility] [NON-STAFF] - 1-2 days Time of Disposition: 09:09
[2023-08-30] MEDS: PENICILLIN G BENZATHINE 1,200,000 UNIT/2 ML SYRINGE IM STA (09:22)
[2023-08-30 09:33] VITALS: BP 115/84; PULSE 67; TEMP 97.9
== END 2023-08-30 09:40 | disposition home or self-care (01) ==
LOC: EC 08:40
DX: A53.9 Syphilis, unspecified (principal)
CPT/HCPCS: 99283; 96372; J0561

== ENCOUNTER 2023-12-11 13:07 | Emergency (ER) | payer MEDICARE, OTHER ==
[2023-12-11 13:25] VITALS: BP 120/63; PULSE 73; RESP 18; TEMP 97.9
--- NOTE | 2023-12-11 13:33 | ED ---
Skin/Abscess/FB HPI - General Chief complaint: Skin/Abscess/Foreign Body Stated complaint: rash Time Seen by Provider: 12/11/23 13:26 Source: patient, RN notes reviewed Mode of arrival: ambulatory Limitations: no limitations - History of Present Illness Initial comments: 38-year-old male presents emergency department with chief complaint of hand rash. Patient states that started last day or so states is very itchy states it is red little bumps on the backside of his hand after using some new products. Patient denies any difficulty breathing no other complaints - Related Data Home Medications Medication Instructions Recorded Confirmed Emtricitabine/Tenofovir (Tdf) 1 tab PO QAM 06/07/22 04/08/23 [Truvada 200 mg-300 mg Tablet] busPIRone HCL 10 mg PO BID PRN 06/07/22 04/08/23 risperiDONE 0.5 mg PO BID 06/07/22 04/08/23 traMADol HCL 50 mg PO BID PRN 04/07/23 04/08/23 Previous Rx's Medication Instructions Recorded HYDROcodone/APAP 5-325MG [[place] 1 tab PO Q6HR PRN #21 tab 04/08/23 5-325] Mebendazole [Emverm chew] 100 mg PO ONCE #2 tab 08/28/23 Triamcinolone 0.1% Cream [Kenalog 1 applicatio TOPICAL BID #30 gram 12/11/23 0.1% Cream] Allergies Allergy/AdvReac Type Severity Reaction Status Date / Time No Known Allergies Allergy Verified 08/30/23 08:46 Review of Systems ROS Statement: Those systems with pertinent positive or pertinent negative responses have been documented in the HPI. ROS Other: All systems not noted in ROS Statement are negative. 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 no hx blood transfusion Past Psychological History: Anxiety, Depression Smoking Status: Never smoker Past Alcohol Use History: Occasional Past Drug Use History: None Reported - Past Family History Father History Unknown: Yes General Exam Limitations: no limitations General appearance: alert, in no apparent distress Head exam: Present: atraumatic, normocephalic, normal inspection Respiratory exam: Present: normal lung sounds bilaterally. Absent: respiratory distress, wheezes, rales, rhonchi, stridor Cardiovascular Exam: Present: regular rate, normal rhythm, normal heart sounds. Absent: systolic murmur, diastolic murmur, rubs, gallop, clicks Extremities exam: Present: other (Dorsal aspect of bilateral hands are small macular papular rash with excoriations) Course Vital Signs 12/11/23 13:21 Temperature 97.9 F Pulse Rate 73 Respiratory 18 Rate Blood Pressure 120/63 O2 Sat by Pulse 99 Oximetry Medical Decision Making - Medical Decision Making Was pt. sent in by a medical professional or institution (VIVIAN Castañeda, STEEL FABRICATING SUPERVISOR, urgent care, hospital, or senior living...) When possible be specific @ -No Did you speak to anyone other than the patient for history (EMS, parent, family, police, friend...)? What history was obtained from this source @ -No Did you review nursing and triage notes (agree or disagree)? Why? @ -I reviewed and agree with nursing and triage notes Were old charts reviewed (outside hosp., previous admission, EMS record, old EKG, old radiological studies, urgent care reports/EKG's, senior living records)? Report findings @ -No old charts were reviewed Differential Diagnosis (chest pain, altered mental status, abdominal pain women, abdominal pain men, vaginal bleeding, weakness, fever, dyspnea, syncope, headache, dizziness, GI bleed, back pain, seizure, CVA, palpatations, mental health, musculoskeletal)? @ -Allergic reaction, contact dermatitis, EKG interpreted by me (3pts min.). @ -None X-rays interpreted by me (1pt min.). @ -None done CT interpreted by me (1pt min.). @ -None done U/S interpreted by me (1pt. min.). @ -None done What testing was considered but not performed or refused? (CT, X-rays, U/S, labs)? Why? @ -None What meds were considered but not given or refused? Why? @ -None Did you discuss the management of the patient with other professionals (professionals i.e. VIVIAN Castañeda, STEEL FABRICATING SUPERVISOR, lab, RT, psych nurse, social work assistant, coating manager, teacher, medical scientific officer, case making machine operator)? Give summary @ -No Was smoking cessation discussed for >3mins.? @ -No Was critical care preformed (if so, how long)? @ -No Were there social determinants of health that impacted care today? How? (Homelessness, low income, unemployed, alcoholism, drug addiction, transportation, low edu. Level, literacy, decrease access to med. care, assisted, rehab)? @ -No Was there de-escalation of care discussed even if they declined (Discuss DNR or withdrawal of care, Hospice)? DNR status @ -No What co-morbidities impacted this encounter? (DM, HTN, Smoking, COPD, CAD, Cancer, CVA, ARF, Chemo, Hep., AIDS, mental health diagnosis, sleep apnea, morbid obesity)? @ -None Was patient admitted / discharged? Hospital course, mention meds given and route, prescriptions, significant lab abnormalities, going to OR and other pertinent info. @ -Discharge patient has contact dermatitis was started on steroid cream patient may take [id number] Benadryl. Undiagnosed new problem with uncertain prognosis? @ -No Drug Therapy requiring intensive monitoring for toxicity (Heparin, Nitro, Insulin, Cardizem)? @ -No Were any procedures done? @ -No Diagnosis/symptom? @ -Dermatitis Acute, or Chronic, or Acute on Chronic? @ -Acute Uncomplicated (without systemic symptoms) or Complicated (systemic symptoms)? @ -Uncomplicated Side effects of treatment? @ -No Exacerbation, Progression, or Severe Exacerbation? @ -No Poses a threat to life or bodily function? How? (Chest pain, [place], [place], pneumonia, PE, COPD, DKA, ARF, appy, cholecystitis, CVA, Diverticulitis, Homicidal, Suicidal, threat to staff... and all critical care pts) @ -No Disposition Clinical Impression: Hand dermatitis Disposition: HOME SELF-CARE Condition: Stable Instructions (If sedation given, give patient instructions): Dermatitis (ED) Additional Instructions: Please return to the Emergency Department if symptoms worsen or any other concerns. Prescriptions: Triamcinolone 0.1% Cream [Kenalog 0.1% Cream] 1 applicatio TOPICAL BID #30 gram Is patient prescribed a controlled substance at d/c from ED?: No Referrals: Chaitanya Butts MD [Primary Care Provider] - 1-2 days Time of Disposition: 13:30
== END 2023-12-11 13:40 | disposition home or self-care (01) ==
LOC: EC 13:07
DX: L30.9 Dermatitis, unspecified (principal)
CPT/HCPCS: 99282